=== PATIENT | female | born 1970 | race Two or more races ===

== ENCOUNTER 2017-05-21 10:53 | Emergency (ER) | payer SELFPAY ==
[~2017-05-21 10:53] MED LIST: AMOXIL500 M1 PO; AMPICILLIN500 MG PO; ASPIR 8181 M1 PO; BACTRIM DS TABL1 TAB PO; BIOTIN1000 MCG PO; CIPRO500 MG PO; CIPROFLOXACIN750 M1 PO; CLARITIN10 M8 PO; COD LIVER OIL1 EAC2 PO; CYCLOBENZAPRINE10 M1 PO; DIFLUCAN150 MG PO; DOXYCYCLINE HY100 MG PO; FISH OIL 11000 MG/CA PO; FISH OIL PO; GABAPENTIN300 M1 PO; GENOPTIC5 ML OP; H PO; HYDROCODONE/APA1 TAB PO; HYDROXYZINE PAM25 M2 PO; HYDROXYZINE PAM50 M2 PO; KEFLEX500 MG PO; MEDROL4 M1 PO; MELOXICAM7.5 M1 PO; MULTIVITAMINS1 EAC7 PO; NABUMETONE750 M1 PO; NORCO 10-325 T1 EACH PO; NORCO 10/3251 TA1 PO; NORCO 5-325 TA1 EACH PO; NORCO 5/325 TAB1 TAB PO; NORCO 7.5-3251 EACH PO; PIROXICAM PO; PREDNISONE20 M1 PO; QUETIAPINE FUMA50 M1 PO; REMERON15 M1 PO; REXULTI2 MG PO; TRILEPTAL300 M2 PO; TYLENOL EXTRA500 M1 PO; TYLENOL325 M2 PO; WELLBUTRIN SR150 M2 PO; ZYRTEC1010 PO; [UNRECOGNIZED DRUG - OTHER]
[2017-05-21 11:10] LABS: URINE APPEARANCE CLOUDY; URINE BILIRUBIN SMALL (NEG); URINE BLOOD LARGE (NEG); URINE COLOR YELLOW; URINE GLUCOSE (UA) NEGATIVE (NEG); URINE KETONE SMALL (NEG); URINE LEUKOCYTE ESTERASE POSITIVE (NEG); URINE NITRITE POSITIVE (NEG); URINE PROTEIN MODERATE (NEG); URINE SPECIFIC GRAVITY 1.025 (1.003-1.030)
[2017-05-21 11:12] LABS: URINE BACTERIA 2+
[2017-05-21] MEDS ORDERED: MACROBID 100 M100 M1 PO (13:01)
[2017-07-25] MEDS ORDERED: TOBREX5 M1 RIGHT EYE (12:22)
== END 2017-05-21 13:10 ==
LOC: EDMED 10:53
PROVIDERS: Emergency Medicine
DX: N39.0 Urinary tract infection, site not specified (principal); Z88.2 Allergy status to sulfonamides; Z87.891 Personal history of nicotine dependence; Z98.890 Other specified postprocedural states

== ENCOUNTER 2017-08-10 23:35 | Emergency (ER) | payer SELFPAY ==
[~2017-08-10] VITALS: Ht 165.1 cm; Wt 81.0 kg
[~2017-08-10 23:35] MED LIST changes: +MACROBID 100 M100 M1 PO; +TOBREX5 M1 RIGHT EYE
[2017-08-10] MEDS ORDERED: SAPHRIS5 M1 SL (23:43)
[2017-08-10] MEDS ORDERED: RED YEAST RICE PO (23:44)
[2017-08-10] MEDS ORDERED: PRISTIQ ER50 MG PO (23:44)
[2017-08-11 00:34] LABS: BASO % 0.5 % (0-2); BASO ABSOLUTE COUNT 0.1 tho/cmm (0.0-0.2); EOS % 3.5 % (0-7); EOSINOPHIL ABSOLUTE COUNT 0.4 tho/cmm (0.0-0.7); HCT-HEMATOCRIT 36.5 % (34.0-49.0); HGB-HEMOGLOBIN 12.1 gm/dl (12.0-15.5); IMMATURE GRANULOCYTES ABSOLUTE 0.02 tho/cmm (0-0.03); IMMATURE GRANULOCYTES PERCENT 0.2 % (0-0.3); LYMPH % 24.5 % (20-45); LYMPH ABSOLUTE COUNT 2.6 tho/cmm (0.8-4.5); MCH (MEAN CORPUSCULAR HGB) 28.1 pg (28.0-32.0); MCHC MEAN CORPUSCULAR HGB CONC 33.2 % (32.0-36.0); MCV (MEAN CELL VOLUME) 84.7 fl (82.0-96.0); MONOCYTE ABSOLUTE COUNT 0.7 tho/cmm (0.0-1.2); NEUTROPHIL ABSOLUTE COUNT 6.8 tho/cmm (1.6-8.0); NEUTROPHIL-AUTOMATED 6.8 tho/cmm (1.6-8.0); NEUTROPHILS % 64.3 % (40-80); PLATELET COUNT 284 tho/cmm (150-450); RED BLOOD COUNT 4.31 mil/cmm (4.00-5.20); RED CELL DISTRIBUTION WIDTH 16.8 % (12.4-16.4); WHITE BLOOD COUNT 10.6 tho/cmm (4.0-10.0)
[2017-08-11 00:44] LABS: ANION GAP 10 mmol/L (0-20); BLOOD UREA NITROGEN 22 mg/dl (6-24); CALCIUM 8.5 mg/dl (8.5-10.5); CARBON DIOXIDE-VENOUS 25 mmol/L (22-32); CHLORIDE 108 mmol/l (96-110); CREATININE 1.06 mg/dl (0.50-1.10); GLUCOSE 145 mg/dL (70-110); POTASSIUM 3.6 mmol/L (3.7-5.1); SODIUM 139 mmol/L (135-145); eGFR VALUE FOR BLACK 72 mL/Min
== END 2017-08-11 01:44 ==
LOC: EDMED → EDBD 23:35 → EDMED 08-11 01:44
PROVIDERS: Emergency Medicine
DX: R42 Dizziness and giddiness (principal); T50.905A Adverse effect of unspecified drugs, medicaments and biological substances, initial encounter; Z87.891 Personal history of nicotine dependence
CPT/HCPCS: J7030